=== PATIENT | male | born 1965 | race Caucasian/White ===

== ENCOUNTER 2021-09-28 08:22 | Emergency (ER) | payer BC, OTHER ==
--- NOTE | 2021-09-28 09:33 | ED ---
URI HPI - General Chief Complaint: Upper Respiratory Infection Stated Complaint: DENYS Time Seen by Provider: 09/28/21 08:59 Source: patient, RN notes reviewed Mode of arrival: ambulatory Limitations: no limitations - History of Present Illness Initial Comments: This a 56 show male presents emergency Department with chief complaint of cough congestion. Patient states symptoms started last 24 hours with appears chilled bodyaches not taking any recent Tylenol Motrin is nonproductive cough, mild headache mild sore throat. - Related Data Home Medications Medication Instructions Recorded Confirmed Cetirizine HCl [Zyrtec] 1 tab PO DIRECTED 08/06/15 08/06/15 Previous Rx's Medication Instructions Recorded Famotidine [Pepcid] 20 mg PO DAILY #3 tablet 08/06/15 predniSONE [Deltasone] 20 mg PO DAILY #3 tab 08/06/15 Allergies Allergy/AdvReac Type Severity Reaction Status Date / Time No Known Allergies Allergy Verified 09/28/21 08:42 Review of Systems ROS Statement: Those systems with pertinent positive or pertinent negative responses have been documented in the HPI. ROS Other: All systems not noted in ROS Statement are negative. Past Medical History Past Medical History: Cancer, Diabetes Mellitus Additional Past Medical History / Comment(s): hodgkins lymphoma History of Any Multi-Drug Resistant Organisms: None Reported Additional Past Surgical History / Comment(s): biopsies, med port Past Psychological History: No Psychological Hx Reported Smoking Status: Never smoker Past Alcohol Use History: None Reported Past Drug Use History: None Reported General Exam Limitations: no limitations General appearance: alert, in no apparent distress Head exam: Present: atraumatic, normocephalic, normal inspection Eye exam: Present: normal appearance, PERRL, EOMI. Absent: scleral icterus, conjunctival injection, periorbital swelling ENT exam: Present: normal exam, mucous membranes moist Neck exam: Present: normal inspection, full ROM. Absent: tenderness, meningismus, lymphadenopathy Respiratory exam: Present: normal lung sounds bilaterally. Absent: respiratory distress, wheezes, rales, rhonchi, stridor Cardiovascular Exam: Present: normal rhythm, tachycardia, normal heart sounds. Absent: systolic murmur, diastolic murmur, rubs, gallop, clicks GI/Abdominal exam: Present: soft, normal bowel sounds. Absent: distended, tenderness, guarding, rebound, rigid Course Vital Signs 09/28/21 09/28/21 08:42 09:32 Temperature 99.9 F H Pulse Rate 115 H Respiratory 18 16 Rate Blood Pressure 111/76 O2 Sat by Pulse 95 Oximetry Medical Decision Making - Medical Decision Making Patient is positive for COVID-19 did receive monoclonal antibodies be discharged in stable condition return parameters were discussed. - Lab Data Lab Results 09/28/21 Range/Units 08:48 Coronavirus (PCR) Detected A (Not Detectd) Disposition Clinical Impression: COVID-19 Disposition: HOME SELF-CARE Condition: Stable Instructions (If sedation given, give patient instructions): Coronavirus Disease 2019 (COVID-19) Additional Instructions: Please return to the Emergency Department if symptoms worsen or any other concerns. Is patient prescribed a controlled substance at d/c from ED?: No Referrals: None,Stated [Primary Care Provider] - 1-2 days Time of Disposition: 09:33
[2021-09-28] MEDS ORDERED: CASIRIVIMAB (REGN10933) (EUA) 600 MG, IMDEVIMAB (REGN10987) (EUA) 600 MG in SODIUM CHLO... IVPB ONE (10:00)
[2021-09-28] MEDS ORDERED: SODIUM CHLORIDE 0.9% 50 ML IVPB ONE (10:00)
[2021-09-28] MEDS ORDERED: IBUPROFEN 600 MG TAB PO STA (10:07)
[2021-09-28] MEDS ORDERED: ACETAMINOPHEN TAB 500 MG TAB PO STA (10:07)
[2021-09-28 11:56] VITALS: BP 105/71; PULSE 106; RESP 18; TEMP 99
== END 2021-09-28 11:55 | disposition home or self-care (01) ==
LOC: EC 08:22
DX: U07.1 COVID-19 (principal); E11.9 Type 2 diabetes mellitus without complications
CPT/HCPCS: 87635; 99283; 96365; Q0243

== ENCOUNTER 2021-11-15 19:06 | Inpatient (IN) | payer OTHER ==
--- NOTE | 2021-11-15 19:09 | ED ---
Chest Pain HPI - General Stated Complaint: Stemi Time Seen by Provider: 11/15/21 19:08 - History of Present Illness Initial Comments: Nazario is a 56yo M non-smoker who to the emergency department today via ambulance for evaluation of chest pain. 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 At that time he called EMS and EKG was done which confirmed an inferior wall VT. Patient had COVID in August. He has no other cardiac or pulmonary history. - Related Data Home Medications Medication Instructions Recorded Confirmed No Known Home Medications 09/28/21 09/28/21 Allergies Allergy/AdvReac Type Severity Reaction Status Date / Time No Known Allergies Allergy Verified 11/15/21 19:11 Review of Systems ROS Statement: Those systems with pertinent positive or pertinent negative responses have been documented in the HPI. ROS Other: All systems not noted in ROS Statement are negative. EKG Findings - EKG Comments: EKG Findings:: Pre-Hospital EKG was reviewed at 1845, rate is 92 rhythm is sinus normal axis, normal intervals, there are ST elevations in leads [address] depressions laterally this meets inferior wall STEMI criteria. EKG was obtained upon arrival at 1912, rate is 77 rhythm is sinus leftward axis, normal intervals, UT 164, QRS 104, QTC [address] elevations in 2,3 and aVF STEMI Past Medical History Past Medical History: Cancer, Diabetes Mellitus Additional Past Medical History / Comment(s): hodgkins lymphoma History of Any Multi-Drug Resistant Organisms: None Reported Additional Past Surgical History / Comment(s): biopsies, med port Past Psychological History: No Psychological Hx Reported Smoking Status: Never smoker Past Alcohol Use History: None Reported Past Drug Use History: None Reported General Exam - General Exam Comments Initial Comments: Physical Exam GENERAL: Dugan and diaphoretic Acute distress HENT: Normocephalic, Atraumatic. EYES: PERRL, EOMI PULMONARY: Unlabored respirations. CARDIOVASCULAR: There is a regular rate and rhythm without any murmurs gallops or rubs. ABDOMEN: Soft and nontender with normal bowel sounds. SKIN: Dugan, diaphoretic : Deferred NEUROLOGIC: Patient is alert and oriented x3. Moving all extremities spontaneously MUSCULOSKELETAL: Normal extremities with adequate strength and full range of motion. No lower extremity swelling or edema. No calf tenderness. PSYCHIATRIC: Normal psychiatric evaluation. Course Vital Signs 11/15/21 11/15/21 11/15/21 19:09 19:10 19:15 Pulse Rate 118 H 107 H 98 Respiratory 20 18 18 Rate Blood Pressure 125/106 163/98 159/105 O2 Sat by Pulse 100 99 100 Oximetry 11/15/21 19:18 Pulse Rate 88 Respiratory 18 Rate Blood Pressure 162/105 O2 Sat by Pulse 100 Oximetry Chest Pain MDM - MDM Report was taken prehospital, prehospital EKG was reviewed and meets STEMI criteria. Cardiology was notified and Code STEMI was activated. I spoke with DR. Jones of cardiology who agreed to take this patient directly to cardiac catheterization. The patient was immediately placed in a monitored bed, and IV was placed pre- hospital, oxygen was administered, and the EKG was evaluated and again confirms inferior wall VT. Defibrillator pads were placed on the patient. The patient was given Aspirin. After a chest x-ray was performed which showed no mediastinal widening IV heparin was given based on the patients weight. The patient had normal hemodynamics during the ED course and was taken directly to the cardiac laboratory engineer where Dr Quan as available for intervention Patient care was discussed with Dr Jimenez who accepts the admission Disposition Clinical Impression: STEMI (ST elevation myocardial infarction) Disposition: ADMITTED IP TO THIS HOSP Condition: Serious Is patient prescribed a controlled substance at d/c from ED?: No
[2021-11-15] MEDS ORDERED: HEPARIN SODIUM 1,000 UN/ML (10ML VL) IV ONE ×2 (19:13→19:34)
[2021-11-15] MEDS ORDERED: HEPARIN SODIUM 1,000 UN/ML (10ML VL) IV PRN (19:13)
[2021-11-15] MEDS ORDERED: HEPARIN SOD,PORK IN 0.45% NACL 25,000 UNIT in 0.45% NACL 1 250ML.BAG IV SCH (19:15)
[2021-11-15] MEDS ORDERED: LIDOCAINE 1% INJ 10MG/ML (20 ML MDV) ONE (19:21)
[2021-11-15] MEDS ORDERED: HEPARIN SODIUM 1,000 UN/ML (10ML VL) ONE (19:21)
[2021-11-15] MEDS ORDERED: VERAPAMIL 2.5 MG/ML 2 ML AMP ONE (19:21)
[2021-11-15] MEDS ORDERED: ATORVASTATIN 80 MG TAB PO STA (19:21)
[2021-11-15] MEDS ORDERED: ATORVASTATIN 80 MG TAB PO ONE (19:27)
--- NOTE | 2021-11-15 19:28 | XR ---
EXAMINATION TYPE: XR chest 1V portable DATE OF EXAM: 11/15/2021 COMPARISON: NONE HISTORY: Chest pain. TECHNIQUE: Single frontal view of the chest is obtained. FINDINGS: The heart is enlarged. The pulmonary vasculature is within normal limits. Low lung volumes. There is opacification at the left base. IMPRESSION: Cardiomegaly with the left effusion with adjacent atelectasis/airspace disease.
[2021-11-15] MEDS ORDERED: MIDAZOLAM 2 MG/2 ML VIAL IVP ONE (19:30)
[2021-11-15] MEDS ORDERED: LIDOCAINE 1% INJ 10MG/ML (20 ML MDV) SQ ONE (19:31)
[2021-11-15 19:32] LABS: ALT 15 U/L (4-49); AST 19 U/L (17-59); African American GFR (CKD) >90 (>60 ml/min/1.73 sqM); Albumin 4.2 g/dL (3.5-5.0); Alkaline Phosphatase 86 U/L (38-126); Anion Gap 10 mmol/L; Blood Urea Nitrogen 15 mg/dL (9-20); Calcium 9.3 mg/dL (8.4-10.2); Carbon Dioxide 21 mmol/L (22-30); Chloride 105 mmol/L (98-107); Glucose 248 mg/dL (74-99); Non-African American GFR(CKD) >90 (>60 ml/min/1.73 sqM); Potassium 4.1 mmol/L (3.5-5.1); Sodium 136 mmol/L (137-145); Total Bilirubin 0.9 mg/dL (0.2-1.3); Total Protein 7.4 g/dL (6.3-8.2)
[2021-11-15] MEDS ORDERED: IV FLUID CONTINUATION 1,000 ML IV ONE (19:33)
[2021-11-15] MEDS: VERAPAMIL SYRINGE (5 MG/10 ML) INTRAARTER ONE ×2 (19:33→20:01)
--- NOTE | 2021-11-15 19:38 | P.CRDCN ---
History of Present Illness History of present illness: This is Dr. Jones dictating a consult on this patient The patient was interviewed and examined IMPRESSION / ASSESSMENT: Acute ST elevation ME inferior and posterior and lateral, likely left circumflex territory Type 2 diabetes for the last 3 years, not on medications Hypertension blood pressure ranging around 140/80, not on an MICHELLE inhibitor is on angiotensin receptor blockers Nonsmoker/never smoker Not on any medications at home Past history of Hodgkin's lymphoma PLAN: Patient received aspirin heparin and statins Urgent transferred to the Mathematics Department Chair for coronary angiography and intervention HPI This is a 56-year-old male patient who presented with midsternal chest discomfort that 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 EXAMINATION: 1 2406 163/9850 905 Pulse rate about 100 normal respirations Breath sounds are clear no rhonchi no crackles Normal heart sounds no murmurs or gallops no rub No lower extremity edema No JVD bruits REVIEW OF LABS, ECG & MEDICAL DATA Twelve-lead EKG shows sinus rhythm normal LA ST elevation in the inferior leads, ST elevation in V1 and V2 [ST depression mirror-image], ST elevation in V6 and ST depressions one in aVL Past Medical History Past Medical History: Cancer, Diabetes Mellitus Additional Past Medical History / Comment(s): hodgkins lymphoma History of Any Multi-Drug Resistant Organisms: None Reported Additional Past Surgical History / Comment(s): biopsies, med port Past Psychological History: No Psychological Hx Reported Smoking Status: Never smoker Past Alcohol Use History: None Reported Past Drug Use History: None Reported Medications and Allergies Home Medications Medication Instructions Recorded Confirmed Type No Known Home Medications 09/28/21 09/28/21 History Allergies Allergy/AdvReac Type Severity Reaction Status Date / Time No Known Allergies Allergy Verified 11/15/21 19:11 Physical Exam Vitals: Vital Signs Pulse Resp BP Pulse Ox 11/15/21 19:09 118 H 20 125/106 100 Intake and Output 11/15/21 11/15/21 11/15/21 06:59 14:59 22:59 Other: Weight 113.398 kg Results Current Medications Generic Name Dose Route Start Last Admin Trade Name Freq PRN Reason Stop Dose Admin Heparin Sodium (Porcine) 0 unit 11/15/21 19:13 Heparin Sodium 1,000 Un/Ml (10ml Vl) IV PER PROTOCOL PRN Low PTT Protocol Heparin Sodium/Sodium Chloride 250 mls @ 9.979 mls/hr 11/15/21 19:15 25,000 unit/ Sodium Chloride IV .Q24H EDNA Protocol 8.8 UNITS/KG/HR Nitroglycerin 0.4 mg 11/15/21 19:08 Nitroglycerin Sl Tabs 0.4 Mg Tab SUBLINGUAL Q5M PRN Chest Pain Intake and Output 11/15/21 11/15/21 11/15/21 06:59 14:59 22:59 Other: Weight 113.398 kg Patient Weight 11/16/21 06:59 Weight 113.398 kg
[2021-11-15] MEDS ORDERED: PRASUGREL 10 MG TAB ONE (19:39)
[2021-11-15] MEDS ORDERED: MORPHINE SULFATE 4 MG/ML SYRINGE ONE (19:41)
[2021-11-15] MEDS ORDERED: niCARdipine 25 MG/10 ML VIAL ONE (19:42)
[2021-11-15] MEDS ORDERED: MORPHINE SULFATE 4 MG/ML SYRINGE IVP ONE (19:45)
[2021-11-15 19:46] LABS: Basophils % (A) 1 %; Eosinophils # (A) 0.1 k/uL (0-0.7); Eosinophils % (A) 1 %; HCT 47.7 % (39.0-53.0); HGB 16.3 gm/dL (13.0-17.5); Lymphocytes # (A) 2.5 k/uL (1.0-4.8); Lymphocytes % (A) 34 %; MCH 30.5 pg (25.0-35.0); MCHC 34.2 g/dL (31.0-37.0); Mean Platelet Volume 9.2; Monocytes # (A) 0.4 k/uL (0-1.0); Monocytes % (A) 5 %; Neutrophils # (A) 4.3 k/uL (1.3-7.7); Neutrophils % (A) 57 %; Platelet Count 217 k/uL (150-450); RBC 5.35 m/uL (4.30-5.90); RDW 12.9 % (11.5-15.5); WBC 7.5 k/uL (3.8-10.6)
[2021-11-15] MEDS ORDERED: PRASUGREL 10 MG TAB PO ONE (19:46)
[2021-11-15] MEDS ORDERED: niCARdipine Syringe (1,000 mcg/10 mL) INTRACORON ONE (19:50)
[2021-11-15 19:56] LABS: Partial Thromboplastin Time 21.5 sec (22.0-30.0); Prothrombin Time 10.8 sec (9.0-12.0)
[2021-11-15] MEDS ORDERED: IOPAMIDOL-370 125ML BTL INJ ONE (20:04)
[2021-11-15] MEDS ORDERED: NALOXONE 0.4 MG/ML 1 ML VIAL IV PRN (20:06)
[2021-11-15] MEDS ORDERED: NITROGLYCERIN SL TABS 0.4 MG TAB SUBLINGUAL PRN (20:22)
[2021-11-15] MEDS ORDERED: RX INFO: IV CONTRAST WAS GIVEN 1 EACH MISC MISCELLANE PRN (20:22)
[2021-11-15] MEDS ORDERED: ZOLPIDEM 5 MG TAB PO PRN (20:22)
[2021-11-15] MEDS ORDERED: MAG HYDROX/AL HYDROX/SIMETH 30 ML CUP PO PRN (20:22)
[2021-11-15] MEDS ORDERED: ATROPINE SULFATE 0.1 MG/ML 10ML SYRINGE IV PRN (20:22)
[2021-11-15] MEDS ORDERED: SODIUM CHLORIDE 0.9% 1,000 ML in EMPTY BAG 1 BAG IV SCH (20:30)
[2021-11-15 20:40] LABS: Glucose,Whole Blood 226 mg/dL (75-99)
--- NOTE | 2021-11-15 21:28 | CC ---
CARDIAC CATHETERIZATION REPORT DATE OF SERVICE: 11/15/2021 PERFORMING PHYSICIAN: Ed Quan M.D. PROCEDURES PERFORMED: 1. Selective left and right coronary angiogram. 2. Left heart catheterization. 3. Successful stenting of the mid right coronary artery using a 3.5 x 18 mm Xience drug-eluting stent with an excellent angiographic result. The stent was post- dilated using 4 mm balloon. 4. Successful stenting of the large PLV branch of the right coronary artery using a 2.0 x 12 mm Jomar drug-eluting stent with an excellent angiographic result. 5. Aspiration thrombectomy from the right coronary artery. 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 EKG showed sinus rhythm with ST-segment elevation in the inferior and inferolateral leads. APPROACH: Right radial artery. COMPLICATIONS: None. LEVEL OF SEDATION: Moderate, with sedation length of 32 minutes. Door to balloon was 37 minutes. PROCEDURE DESCRIPTION: After obtaining informed consent, the patient was brought to the cardiac assistant laboratory director. The right radial artery was cannulated using micropuncture technique. The micropuncture wire passed easily. Then I placed a 6-[place] sheath at the right radial artery. I gave the patient 2 mg of verapamil IA and a total of 6000 units of heparin IV. Please note that the patient was given 4000 units of heparin IV in the emergency department. Selective left and right coronary angiogram was performed with JL3.5 diagnostic catheter and JR4 guiding catheter. Left heart catheterization was performed using the JR4 guide, which crossed the aortic valve. Then I did pullback across the valve. After that I did intervene on the RCA. Please see separate paragraph for that. SELECTIVE CORONARY ANGIOGRAM: 1. The left main is a large-caliber vessel. It is angiographically normal. It bifurcates into a left circumflex, which is a nondominant circumflex, and LAD. 2. The LCX. The proximal left circumflex appeared to have mild disease only. It gives rise to a large OM branch which has two tandem lesions that appeared to be in the range of 80% to 90%. The circumflex continues after that as a moderate-caliber vessel in the AV groove. 3. The LAD. The proximal LAD appeared to have mild disease only. The mid LAD has an intermediate lesion that appeared to be in the range of 30% to 40%. The LAD in the mid to distal portion after the second diagonal branch has two tandem lesions that appeared to be in the range of 80% as well. The LAD gives rise to the first and second diagonal branches. Both are moderate-caliber vessels with intermediate disease only. 4. The RCA is a large-caliber vessel. It is a dominant vessel. The proximal RCA has mild disease only. The mid RCA after the bifurcation of the large acute marginal branch has a critical lesion which appeared to be a thrombotic lesion and seemed to be in the range of 99%. The RCA distally bifurcates into PDA and PLV branches. The PDA branch of the RCA has mild disease only. The PLV branch is a large-caliber vessel with a critical lesion in the mid portion. 5. HEMODYNAMICS: The LVEDP was 20 mmHg without significant gradient across the aortic valve. PERCUTANEOUS CORONARY INTERVENTION OF THE RIGHT CORONARY ARTERY: Anticoagulation was achieved and initiated using heparin with continuous ACT monitoring throughout the case. Subsequently I did engage the right using JR4 guiding catheter. I did wire the right using a Whisper wire. I did aspiration thrombectomy from the lesion in the right coronary artery using the [place] catheter. Subsequently I did balloon angioplasty using a 3.0 x 12 mm balloon before I deployed a 3.5 x 18 mm Xience drug-eluting stent where the stent was positioned under fluoroscopic guidance and deployed under 20 atmospheres for 20 seconds. I post-dilated the stent using a 4 mm balloon. The final angiogram showed excellent angiographic results. For the lesion in the PLV branch and because it is a medium- to large-caliber vessel and the occlusion was critical, I decided to stent that lesion. I deployed a 2.0 x 12 mm Jomar drug-eluting stent where the stent was positioned under fluoroscopic guidance and deployed under its nominal pressure. The following angiogram showed excellent angiographic results and the procedure was completed without any complication. CONCLUSION: 1. Acute ST-elevation myocardial infarction in this 56-year-old gentleman with diabetes, hypertension, dyslipidemia and who is overweight. 2. Critical disease involving the mid right coronary artery with a large thrombus burden. I performed successful stenting of the right coronary artery with adjunctive use of aspiration thrombectomy with an excellent angiographic result by the end. 3. Severe disease involving the PLV branch of the right coronary artery. I did perform also successful stenting of the PLV branch of the right coronary artery with an excellent angiographic result. 4. Critical disease involving the first obtuse marginal branch of the left circumflex which is a large-caliber vessel. 5. Critical disease involving the mid left anterior descending artery as well. 6. Elevated left-sided filling pressure with left ventricular end-diastolic pressure of 20 mm Hg. POST-PROCEDURE MANAGEMENT: 1. Aggressive cholesterol control. 2. Risk factor modifications. 3. Dual anti-platelet therapy. 4. PCI of the left circumflex as well as the LAD to be performed as a staged procedure either as an inpatient or as an outpatient, depending on the patient's clinical performance. 5. Follow up with the patient. MMODL / IJN: [id number] /
[2021-11-16] MEDS: NITROGLYCERIN SL TABS 0.4 MG TAB SUBLINGUAL PRN ×2 (05:33→05:54)
[2021-11-16 08:54] LABS: African American GFR (CKD) >90 (>60 ml/min/1.73 sqM); Non-African American GFR(CKD) >90 (>60 ml/min/1.73 sqM)
[2021-11-16] MEDS ORDERED: METOPROLOL SUCCINATE (ER) 25 MG TAB.ER.24H PO SCH (09:00)
[2021-11-16] MEDS: PRASUGREL 10 MG TAB PO SCH (09:21)
[2021-11-16] MEDS: ASPIRIN 81 MG PO SCH (09:21)
[2021-11-16] MEDS ORDERED: lisinopriL 5 MG TAB PO STA (10:14)
--- NOTE | 2021-11-16 10:22 | P.PN ---
Subjective Progress Note Date: 11/16/21 Patient is a 56-year-old male with no known cardiac history admitted with acute ST elevated myocardial infarction of the inferior, posterior, and lateral. Patient does have a history of type 2 diabetes is not currently on any medications, Hodgkin's lymphoma, and he is a nonsmoker. 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 Patient underwent immediate heart catheterization and was found to have disease of the LAD, RCA and left circumflex. He received PCI to the mid RCA and PLV branch of the RCA. He needs to undergo PCI of the LAD and left circumflex. Patient is examined today resting in bed comfortably. States he is doing much better than he was yesterday. He denies chest pain, palpitations, dyspnea, dizziness, syncope, or edema at this time. He states earlier this morning he did have very mild chest pain as compared to yesterday but it has since subsided. Blood pressure 141/86, heart rate 82, respirations 20, 94% oxygen on room air. Afebrile. Current medications include aspirin 81 mg daily, Lipitor 80 mg daily, lisinopril 2.5 daily, Toprol-XL 12.5 daily, and Effient 5mg daily. DIAGNOSTICS: Telemetry shows sinus rhythm with an inverted T wave Echocardiogram pending Chest x-ray shows cardiomegaly with left effusion with adjacent atelectasis/airway space disease Labs reviewedhemoglobin 16.3, sodium 136, potassium 4.1, B1 15, creatinine 0.54, AST 19, ALP 15, troponin 0.066 Objective - Vital Signs Vital signs: Vital Signs Temp 98.4 F 11/16/21 09:00 Pulse 82 11/16/21 09:00 Resp 20 11/16/21 09:00 BP 141/86 11/16/21 09:00 Pulse Ox 94 L 11/16/21 09:00 Intake & Output 11/15/21 11/16/21 11/16/21 18:59 06:59 18:59 Intake Total 845 20 Output Total 600 Balance 245 20 Weight 113 kg Intake: IV 50 Intake, IV Titration 695 20 Amount Sodium Chloride 0.9% 1, 695 20 000 ml In Empty Bag 1 bag @ 75 mls/hr IV .[id number] [facility] Rx#:[id number] Oral 100 Output: Urine 600 Other: Voiding Method Urinal - Exam PHYSICAL EXAM: VITAL SIGNS: Reviewed. GENERAL: Well-developed in no acute distress. HEENT: Head is normocephalic. Pupils are equal, round. Sclerae anicteric. Mucous membranes of the mouth are moist. NECK: Supple. No JVD or thyromegaly RESPIRATORY: Respirations even and unlabored. Lungs diminished to auscultation bilaterally. CARDIO: Regular rate and rhythm. S1 and S2 heard. No murmur or gallops. EXTREMITIES: Normal range of motion. No clubbing or cyanosis. Peripheral pulses intact. Negative for bilateral lower extremity edema NEURO: Orientated to person, time, mood is appropriate - Labs CBC & Chem 7: 11/15/21 19:12 11/16/21 08:08 Labs: Abnormal Lab Results - Last 24 Hours (Table) 11/15/21 11/15/21 11/15/21 Range/Units 19:12 19:12 19:12 APTT 21.5 L (22.0-30.0) sec Sodium 136 L (137-145) mmol/L Carbon Dioxide 21 L (22-30) mmol/L Creatinine 0.64 L (0.66-1.25) mg/dL Glucose 248 H (74-99) mg/dL POC Glucose (mg/dL) (75-99) mg/dL Troponin I 0.066 H* (0.000-0.034) ng/mL 11/15/21 11/16/21 Range/Units 20:39 08:08 APTT (22.0-30.0) sec Sodium (137-145) mmol/L Carbon Dioxide (22-30) mmol/L Creatinine 0.54 L (0.66-1.25) mg/dL Glucose (74-99) mg/dL POC Glucose (mg/dL) 226 H (75-99) mg/dL Troponin I (0.000-0.034) ng/mL Assessment and Plan Assessment: Acute infarct inferior wall myocardial infarction, status post angioplasty of the mid RCA and PLV branch of the RCA Acute coronary artery syndrome, possible PCI of the LAD and left circumflex Hypertension Hyperlipidemia Plan: Patient to be nothing by mouth at midnight, for possible heart catheterization tomorrow for angioplasty of the LAD and left circumflex Repeat troponin 1 Increase lisinopril to 10 mg daily Patient maybe downgraded to 3 south Further recommendations based on clinical course. The above impression and plan of care have been discussed and directed by the signing physician. Franny La, nurse practitioner, acting as scribe for signing physician.
--- NOTE | 2021-11-16 10:59 | ECHOF ---
Referral Reason:Echo MEASUREMENTS -------- HEIGHT: 182.9 cm WEIGHT: 112.9 kg BP: 121/75 RVIDd: 3.6 cm (< 3.3) IVSd: 1.6 cm (0.6 - 1.1) LVIDd: 4.7 cm (3.9 - 5.3) LVPWd: 1.6 cm (0.6 - 1.1) IVSs: 1.9 cm LVIDs: 3.8 cm LVPWs: 1.7 cm LA Diam: 4.1 cm (2.7 - 3.8) LAESV Index (A-L): 33.42 ml/m Ao Diam: 3.9 cm (2.0 - 3.7) AV Cusp: 2.7 cm (1.5 - 2.6) MV EXCURSION: 17.354 mm (> 18.000) MV EF SLOPE: 84 mm/s (70 - 150) EPSS: 1.0 cm MV E Alan: 0.66 m/s MV DecT: 234 ms MV A Alan: 0.73 m/s MV E/A Ratio: 0.91 FINDINGS -------- Sinus rhythm. This was a technically adequate study. The left ventricular size is normal. There is moderate concentric left ventricular hypertrophy. O verall left ventricular systolic function is low-normal with, an EF between 50 - 55 %. Basal inferi or LV wall motion is hypokinetic. The right ventricle is mildly enlarged. LA is midly dilated 29-33ml/m2. The right atrium is normal in size. Interatrial and interventricular septum intact. Trace to mild aortic regurgitation. The mitral valve is normal. The tricuspid valve appears structurally normal. Unable to estimate RVSP due to inadequate TR jet s pectral doppler profile. The pulmonic valve was not well visualized. The aortic root is dilated measuring 3.9cm. Normal inferior vena cava with normal inspiratory collapse consistent with estimated right atrial pre ssure of 5 mmHg. There is no pericardial effusion. CONCLUSIONS -------- 1. The left ventricular size is normal. 2. There is moderate concentric left ventricular hypertrophy. 3. Overall left ventricular systolic function is low-normal with, an EF between 50 - 55 %. 4. Basal inferior LV wall motion is hypokinetic. 5. The right ventricle is mildly enlarged. 6. LA is midly dilated 29-33ml/m2. 7. Trace to mild aortic regurgitation. 8. The aortic root is dilated measuring 3.9cm. 9. There is no pericardial effusion. ENVIRONMENTAL LAW PROFESSOR: Nisha Vizcarra RDCS
[2021-11-16 11:24] LABS: Glucose,Whole Blood 237 mg/dL (75-99)
[2021-11-16 14:28] VITALS: BMI 33.7
[2021-11-16] MEDS ORDERED: ALPRAZolam 0.5 MG TAB PO PRN (15:16)
[2021-11-16] MEDS ORDERED: ALPRAZolam 0.25 MG TAB PO PRN (15:16)
[2021-11-16 16:47] LABS: Glucose,Whole Blood 213 mg/dL (75-99)
[2021-11-16] MEDS: carvediloL 3.125 MG TAB PO SCH (18:09)
[2021-11-16] MEDS: INSULIN ASPART (NovoLOG) 100 UNIT/ML VIAL SQ SCH ×2 (18:10→20:50)
[2021-11-16 20:48] LABS: Glucose,Whole Blood 229 mg/dL (75-99)
[2021-11-16] MEDS: ATORVASTATIN 80 MG TAB PO SCH (20:50)
[2021-11-17] MEDS: ASPIRIN 81 MG PO SCH (05:17)
[2021-11-17] MEDS: lisinopriL 10 MG TAB PO SCH (05:17)
[2021-11-17] MEDS: PRASUGREL 10 MG TAB PO SCH (05:17)
[2021-11-17] MEDS: carvediloL 3.125 MG TAB PO SCH ×2 (05:18→17:04)
[2021-11-17 06:22] LABS: Glucose,Whole Blood 209 mg/dL (75-99)
[2021-11-17] MEDS ORDERED: HEPARIN SODIUM,PORCINE 2,500 UNIT in SODIUM CHLORIDE 0.9% 250 ML IRRIGATION PRN (07:00)
[2021-11-17] MEDS ORDERED: HEPARIN SODIUM,PORCINE 10,000 UNIT in SODIUM CHLORIDE 0.9% 1,000 ML IRRIGATION PRN (07:00)
[2021-11-17] MEDS ORDERED: HEPARIN SODIUM 1,000 UN/ML (10ML VL) ONE (07:12)
[2021-11-17] MEDS ORDERED: LIDOCAINE 1% INJ 10MG/ML (20 ML MDV) ONE (07:12)
[2021-11-17] MEDS ORDERED: VERAPAMIL 2.5 MG/ML 2 ML AMP ONE (07:12)
[2021-11-17] MEDS ORDERED: IV FLUID CONTINUATION 750 ML IV ONE (07:30)
[2021-11-17] MEDS ORDERED: MIDAZOLAM 2 MG/2 ML VIAL IV ONE ×2 (07:45→08:03)
[2021-11-17] MEDS ORDERED: LIDOCAINE 1% INJ 10MG/ML (20 ML MDV) SQ ONE (07:48)
[2021-11-17] MEDS ORDERED: VERAPAMIL SYRINGE (5 MG/10 ML) INTRAARTER ONE (07:50)
[2021-11-17] MEDS ORDERED: fentaNYL (PF) 50 MCG/ML 2 ML AMP ONE (08:05)
[2021-11-17 08:07] LABS: African American GFR (CKD) >90 (>60 ml/min/1.73 sqM); Anion Gap 6 mmol/L; Blood Urea Nitrogen 15 mg/dL (9-20); Calcium 8.9 mg/dL (8.4-10.2); Carbon Dioxide 21 mmol/L (22-30); Chloride 109 mmol/L (98-107); Glucose 222 mg/dL (74-99); Non-African American GFR(CKD) >90 (>60 ml/min/1.73 sqM); Sodium 136 mmol/L (137-145)
[2021-11-17] MEDS ORDERED: fentaNYL (PF) 50 MCG/ML 2 ML AMP IV ONE (08:07)
[2021-11-17 08:10] LABS: Potassium 4.8 mmol/L (3.5-5.1)
[2021-11-17 08:15] LABS: Basophils # (A) 0.1 k/uL (0-0.2); Basophils % (A) 1 %; Eosinophils # (A) 0.1 k/uL (0-0.7); Eosinophils % (A) 2 %; HCT 50.1 % (39.0-53.0); HGB 16.4 gm/dL (13.0-17.5); Hypochromasia Marked; Lymphocytes # (A) 1.4 k/uL (1.0-4.8); Lymphocytes % (A) 23 %; MCHC 32.8 g/dL (31.0-37.0); Mean Platelet Volume 9.5; Monocytes # (A) 0.7 k/uL (0-1.0); Monocytes % (A) 11 %; Neutrophils # (A) 3.7 k/uL (1.3-7.7); Neutrophils % (A) 61 %; Platelet Count 184 k/uL (150-450); RBC 4.98 m/uL (4.30-5.90); RDW 12.9 % (11.5-15.5); WBC 6.1 k/uL (3.8-10.6)
[2021-11-17 08:16] LABS: MCV 100.5 fL (80.0-100.0)
[2021-11-17] MEDS ORDERED: IOPAMIDOL-370 100ML BTL INJ ONE ×2 (08:19→08:29)
[2021-11-17] MEDS ORDERED: NITROGLYCERIN 1000MCG/10ML SYRINGE INTRACORON ONE (08:23)
[2021-11-17] MEDS ORDERED: NITROGLYCERIN SL TABS 0.4 MG TAB SUBLINGUAL PRN (08:32)
[2021-11-17] MEDS ORDERED: ZOLPIDEM 5 MG TAB PO PRN (08:32)
[2021-11-17] MEDS ORDERED: MAG HYDROX/AL HYDROX/SIMETH 30 ML CUP PO PRN (08:32)
[2021-11-17] MEDS ORDERED: ATROPINE SULFATE 0.1 MG/ML 10ML SYRINGE IV PRN (08:32)
[2021-11-17] MEDS ORDERED: RX INFO: IV CONTRAST WAS GIVEN 1 EACH MISC MISCELLANE PRN (08:32)
--- NOTE | 2021-11-17 08:38 | P.PCN ---
Date of Procedure: 11/17/21 Operative Findings: Percutaneous coronary intervention Performing physician Ed Quan M.D. Procedure performed #1 successful stenting of the distal left circumflex coronary artery using 3.25 x 28 mm Xience drug-eluting stent with an excellent angiographic results #2 successful stenting of the distal left anterior descending artery using 2.75 x 38 mm Xience drug-eluting stent with an excellent angiographic result Indication This is a 56-year-old gentleman who was admitted to the hospital a few days ago with acute ST patient myocardial infarction inferiorly. He underwent heart catheterization and was found to have occluded RCA which was a stent and also he was found to have severe disease involving the LCx and LAD and he was brought today to undergo stenting of both. Approach Right radial artery Complications None Level of sedation Moderate sedation length of 40 minutes Procedure discussion After obtaining an informed consent the patient was brought to the cardiac catheter. The right radial artery was cannulated using micropuncture technique, the micropuncture wire passed easily then I placed a 6-Slovenian sheath in the right radial artery. I gave the patient 2 mg of verapamil IV and 10,000 use of heparin IV. Subsequently I did engage the left main using JL 3.5 guiding catheter. I did wire the left circumflex using a run-through wire. Subsequently I predilated the circumflex using 2.0 mm balloon before I deployed 3.25 x 28 mm stent where the stent was positioned under fluoroscopy guidance and deployed under its nominal pressure. I postdilated the stent using 3.5 mm balloon. The following angiogram showed an excellent angiographic results. For the lesion in the LAD I did where the LAD using the same run-through wire. I predilated using 2.5 mm balloon before I deployed 2.75 x 38 mm stent where the stent again was positioned under fluoroscopy as and deployed under its nominal pressure. The following angiogram showed excellent angiographic results. The procedure was completed without any complications Postprocedure management Dual antiplatelet therapy Aggressive cholesterol control Risk factors modification Follow-up with the patient
[2021-11-17] MEDS ORDERED: SODIUM CHLORIDE 0.9% 1,000 ML in EMPTY BAG 1 BAG IV SCH (08:45)
[2021-11-17] MEDS: INSULIN ASPART (NovoLOG) 100 UNIT/ML VIAL SQ SCH ×4 (09:17→20:06)
[2021-11-17 09:18] LABS: Glucose,Whole Blood 225 mg/dL (75-99)
--- NOTE | 2021-11-17 11:18 | P.HPIM ---
History of Present Illness This is a very pleasant 56-year-old male came in with complaints of nausea vomiting burning sensation which is much worse on last Tuesday and patient came to ER patient has 6 heartburn sensation going on for last few days. Patient is found to have inferior microinfarction patient underwent cardiac catheterization and found to have disease in LAD, RCA and left circumflex. Patient had a PCI to mid RCA and the PLV branch of RCA. Patient underwent staged intervention today as well. Patient had PCI to LAD and left circumflex. Patient denied any fever chills patient does have known history of diabetes mellitus patient is trying to control this with the diet to until recently and lately his diet has not been so great. Patient had a post-NM echo which did not show any heart failure but did show inferior wall akinesis/hypokinesis. Patient denied any symptoms at this time. REVIEW OF SYSTEMS: CONSTITUTIONAL: No fever, no malaise, no fatigue. HEENT: No recent visual problems or hearing problems. Denied any sore throat. CARDIOVASCULAR: No chest pain, orthopnea, PND, no palpitations, no syncope. PULMONARY: No shortness of breath, no cough, no hemoptysis. GASTROINTESTINAL: No diarrhea, no nausea, no vomiting, no abdominal pain. NEUROLOGICAL: No headaches, no weakness, no numbness. HEMATOLOGICAL: Denies any bleeding or petechiae. GENITOURINARY: Denies any burning micturition, frequency, or urgency. MUSCULOSKELETAL/RHEUMATOLOGICAL: Denies any joint pain, swelling, or any muscle pain. ENDOCRINE: Denies any polyuria or polydipsia. The rest of the 14-point review of systems is negative. PHYSICAL EXAMINATION: GENERAL: The patient is alert and oriented x3, not in any acute distress. Well developed, well nourished. HEENT: Pupils are round and equally reacting to light. EOMI. No scleral icterus. No conjunctival pallor. Normocephalic, atraumatic. No pharyngeal erythema. No thyromegaly. CARDIOVASCULAR: S1 and S2 present. No murmurs, rubs, or gallops. PULMONARY: Chest is clear to auscultation, no wheezing or crackles. ABDOMEN: Soft, nontender, nondistended, normoactive bowel sounds. No palpable organomegaly. MUSCULOSKELETAL: No joint swelling or deformity. EXTREMITIES: No cyanosis, clubbing, or pedal edema. NEUROLOGICAL: Gross neurological examination did not reveal any focal deficits. SKIN: No rashes. Assessment and plan -Acute ST elevation myocardial infarction: Patient had inferior wall microinfarction, does have coronary artery disease in other vessels as well. Patient is status post cardiac catheterization and staged intervention with the intervention to above-mentioned blood vessels. Patient is on dual antibiotic therapy MICHELLE inhibitor, beta vanessa, statin. Patient says troponin is around 12. -Type 2 diabetes mellitus: Continue with sliding scale for now patient will be discharged on metformin at a low dose patient will need probably to medications. Diabetic education, CBGs twice a day. - hypertension -Hyperlipidemia. DVT prophylaxis: Ambulation Past Medical History Past Medical History: Cancer, Diabetes Mellitus Additional Past Medical History / Comment(s): hodgkins lymphoma History of Any Multi-Drug Resistant Organisms: None Reported Additional Past Surgical History / Comment(s): biopsies, med port Past Psychological History: No Psychological Hx Reported Smoking Status: Never smoker Past Alcohol Use History: None Reported Past Drug Use History: None Reported Medications and Allergies Home Medications Medication Instructions Recorded Confirmed Type Prasugrel [Effient] 10 mg PO DAILY 30 Days #30 tab 11/17/21 Rx Allergies Allergy/AdvReac Type Severity Reaction Status Date / Time No Known Allergies Allergy Verified 11/15/21 21:09 Physical Exam Vitals: Vital Signs Temp Pulse Pulse Resp BP BP BP 11/17/21 08:45 97.8 F 82 16 129/82 11/17/21 04:00 98.1 F 91 16 125/78 11/17/21 02:00 86 16 11/17/21 00:00 98.1 F 86 16 105/67 11/16/21 20:00 98.3 F 86 18 127/78 11/16/21 16:09 98.1 F 86 19 121/77 11/16/21 13:00 82 14 137/92 11/16/21 12:00 105 H 12 Pulse Ox 11/17/21 08:45 97 11/17/21 04:00 95 11/17/21 02:00 11/17/21 00:00 94 L 11/16/21 20:00 97 11/16/21 16:09 97 11/16/21 13:00 96 11/16/21 12:00 Intake and Output 01/17/22 01/18/22 01/18/22 22:59 06:59 14:59 Intake Total 236 300 Balance 236 300 Intake: IV 300 Oral 236 Other: Voiding Method Urinal Urinal Urinal Results CBC & Chem 7: 11/17/21 07:18 11/17/21 07:18 Labs: Abnormal Lab Results - Last 24 Hours (Table) 11/15/21 11/16/21 11/16/21 Range/Units 19:12 11:23 16:42 MCV (80.0-100.0) fL Sodium (137-145) mmol/L Chloride (98-107) mmol/L Carbon Dioxide (22-30) mmol/L Creatinine (0.66-1.25) mg/dL Glucose (74-99) mg/dL POC Glucose (mg/dL) 237 H 213 H (75-99) mg/dL Hemoglobin A1c 9.4 H (0.0-6.0) % 11/16/21 11/17/21 11/17/21 Range/Units 20:44 06:20 07:18 MCV 100.5 H D (80.0-100.0) fL Sodium (137-145) mmol/L Chloride (98-107) mmol/L Carbon Dioxide (22-30) mmol/L Creatinine (0.66-1.25) mg/dL Glucose (74-99) mg/dL POC Glucose (mg/dL) 229 H 209 H (75-99) mg/dL Hemoglobin A1c (0.0-6.0) % 11/17/21 11/17/21 Range/Units 07:18 09:16 MCV (80.0-100.0) fL Sodium 136 L (137-145) mmol/L Chloride 109 H (98-107) mmol/L Carbon Dioxide 21 L (22-30) mmol/L Creatinine 0.62 L (0.66-1.25) mg/dL Glucose 222 H (74-99) mg/dL POC Glucose (mg/dL) 225 H (75-99) mg/dL Hemoglobin A1c (0.0-6.0) %
[2021-11-17 11:53] LABS: Glucose,Whole Blood 176 mg/dL (75-99)
[2021-11-17 16:47] LABS: Glucose,Whole Blood 176 mg/dL (75-99)
[2021-11-17 19:57] LABS: Glucose,Whole Blood 182 mg/dL (75-99)
[2021-11-17] MEDS: ATORVASTATIN 80 MG TAB PO SCH (20:06)
[2021-11-18 06:10] LABS: Glucose,Whole Blood 219 mg/dL (75-99)
[2021-11-18] MEDS: INSULIN ASPART (NovoLOG) 100 UNIT/ML VIAL SQ SCH ×2 (06:19→11:38)
[2021-11-18] MEDS: carvediloL 3.125 MG TAB PO SCH (06:19)
[2021-11-18] MEDS: lisinopriL 10 MG TAB PO SCH (08:58)
[2021-11-18] MEDS: PRASUGREL 10 MG TAB PO SCH (08:58)
[2021-11-18] MEDS: ASPIRIN 81 MG PO SCH (08:58)
[2021-11-18 09:02] VITALS: RESP 16; TEMP 99.1
[2021-11-18 09:03] LABS: African American GFR (CKD) >90 (>60 ml/min/1.73 sqM); Non-African American GFR(CKD) >90 (>60 ml/min/1.73 sqM)
[2021-11-18 11:32] LABS: Glucose,Whole Blood 224 mg/dL (75-99)
[2021-11-18 11:41] VITALS: BP 132/92; PULSE 84
--- NOTE | 2021-11-18 13:00 | P.PN ---
Subjective Patient is a 56-year-old male with no known cardiac history admitted with acute ST elevated myocardial infarction of the inferior, posterior, and lateral. Patient does have a history of type 2 diabetes is not currently on any medications, Hodgkin's lymphoma, and he is a nonsmoker. He does not follow with a cable lacer. Patient underwent immediate heart catheterization and was found to have disease of the LAD, RCA and left circumflex. He received PCI to the mid RCA and PLV branch of the RCA on 11/15/[address] Quan Yesterday, 11/17/21 He underwent PCI to the distal circumflex and distal LAD with Dr. Quan. Patient is examined today resting in bed comfortably. He is feeling well. No complaints. He denies chest pain, palpitations, dyspnea, dizziness, syncope, or edema at this time. Blood pressure 132/92, heart rate 84, afebrile, satura tions 95% on room air. Afebrile. Current medications include aspirin 81 mg daily, Lipitor 80 mg daily, lisinopril 2.5 daily, Toprol-XL 12.5 daily, and Effient 10mg daily. Echocardiogram revealed EF of 5055 percent, basal inferior LV wall hypokinetic Labs, serum creatinine 0.6 GENERAL: Well-appearing, well-nourished and in no acute distress. NECK: Supple without JVD or thyromegaly. LUNGS: Breath sounds clear to auscultation bilaterally. Respiration equal and unlabored. No wheezes, rales or rhonchi. HEART: Regular rate and rhythm without murmurs, rubs or gallops. S1 and S2 heard. EXTREMITIES: Normal range of motion, no edema. No clubbing or cyanosis. Peripheral pulses intact. SKIN: Right wrist cath site, clean dry intact no hematoma 2+ pulses ASSESSMENT STEMI Status post PCI to mid RCA and PLV branch of the RCA on 11/15/21 Status post PCI to the distal circumflex and distal LAD History of type 2 diabetes Hypertension History of Hodgkin's lymphoma PLAN From a cardiology perspective, patient is stable to be discharged home. Continue dual antiplatelet therapy with aspirin and Effient. Effient is covered with $10 copay Continue statin, carvedilol, lisinopril Patient to follow-up with Dr. Jones in the office in one week Nurse Practitioner note has been reviewed, I agree with a documented findings and plan of care. Patient was seen and examined. Objective - Vital Signs Vital signs: Vital Signs Temp 99.1 F 11/18/21 08:00 Pulse 84 11/18/21 11:40 Resp 16 11/18/21 11:40 BP 132/92 11/18/21 11:40 Pulse Ox 95 11/18/21 11:40 Intake & Output 11/17/21 11/18/21 11/18/21 18:59 06:59 18:59 Intake Total 540 160 240 Output Total 500 Balance 540 -340 240 Weight 113 kg Intake: IV 300 Intake, IV Titration 160 Amount Sodium Chloride 0.9% 1, 160 000 ml In Empty Bag 1 bag @ 75 mls/hr IV .[id number] [facility] Rx#:[id number] Oral 240 240 Output: Urine 500 Other: Voiding Method Toilet Toilet Toilet # Voids 1 - Labs CBC & Chem 7: 11/17/21 07:18 11/18/21 07:16 Labs: Abnormal Lab Results - Last 24 Hours (Table) 11/17/21 11/17/21 11/18/21 Range/Units 16:42 19:54 06:03 POC Glucose (mg/dL) 176 H 182 H 219 H (75-99) mg/dL 11/18/21 Range/Units 11:29 POC Glucose (mg/dL) 224 H (75-99) mg/dL
--- NOTE | 2021-11-18 13:25 | P.DS ---
Providers Date of admission: 11/15/21 20:06 Attending physician: Hari Yoon MD Consults: 11/15/21 19:08 Consult Physician Stat Consulting Provider: Cardiology Hugo Consult Reason/Comments: STEMI ACTIVATION COMPLETE Do you want consulting provider notified?: Yes 11/15/21 20:22 Consult Physician Routine Consulting Provider: Cardiology Hugo Consult Reason/Comments: Post Interventional patient Do you want consulting provider notified?: Already Contacted 11/16/21 12:03 Consult Physician Routine Consulting Provider: Hari Yoon Consult Reason/Comments: medical management Do you want consulting provider notified?: Yes 11/17/21 08:32 Consult Physician Routine Consulting Provider: Cardiology Hugo Consult Reason/Comments: Post Interventional patient Do you want consulting provider notified?: Already Contacted Primary care physician: Stated None Hospital Course: This is a very pleasant 56-year-old male came in with complaints of nausea vomiting burning sensation which is much worse on last Tuesday and patient came to ER patient has 6 heartburn sensation going on for last few days. Patient is found to have inferior microinfarction patient underwent cardiac catheterization and found to have disease in LAD, RCA and left circumflex. Patient had a PCI to mid RCA and the PLV branch of RCA. Patient underwent staged intervention today as well. Patient had PCI to LAD and left circumflex. Patient denied any fever chills patient does have known history of diabetes mellitus patient is trying to control this with the diet to until recently and lately his diet has not been so great. Patient had a post-GA echo which did not show any heart failure but did show inferior wall akinesis/hypokinesis. Patient denied any symptoms at this time. 11/18/2021 Patient is medically stable clinically doing well normal ejection fraction patient will be discharged today. Patient will be discharged on metformin may need to increase the dose of metformin as an outpatient. Patient is to check his blood sugars twice a day PHYSICAL EXAMINATION: GENERAL: The patient is alert and oriented x3, not in any acute distress. Well developed, well nourished. HEENT: Pupils are round and equally reacting to light. EOMI. No scleral icterus. No conjunctival pallor. Normocephalic, atraumatic. No pharyngeal erythema. No thyromegaly. CARDIOVASCULAR: S1 and S2 present. No murmurs, rubs, or gallops. PULMONARY: Chest is clear to auscultation, no wheezing or crackles. ABDOMEN: Soft, nontender, nondistended, normoactive bowel sounds. No palpable organomegaly. MUSCULOSKELETAL: No joint swelling or deformity. EXTREMITIES: No cyanosis, clubbing, or pedal edema. NEUROLOGICAL: Gross neurological examination did not reveal any focal deficits. SKIN: No rashes. Assessment and plan -Acute ST elevation myocardial infarction: Patient had inferior wall myocardial infarction, does have coronary artery disease in other vessels as well. Patient is status post cardiac catheterization and staged intervention with the intervention to above-mentioned blood vessels. Patient is on dual antibiotic therapy MICHELLE inhibitor, beta vanessa, statin. Will be discharged today -Type 2 diabetes mellitus: Continue with sliding scale for now patient will be discharged on metformin at a low dose, does may need to be increased as an outpatient. Diabetic education, CBGs twice a day. - hypertension -Hyperlipidemia. Patient Condition at Discharge: Serious Plan - Discharge Summary New Discharge Prescriptions: New Aspirin 81 mg PO DAILY 30 Days #30 tab carvediloL [Coreg] 3.125 mg PO BID-W/MEALS 30 Days #60 tab Nitroglycerin Sl Tabs [Nitrostat] 0.4 mg SUBLINGUAL Q5M PRN #25 tab PRN Reason: Chest Pain lisinopriL [Zestril] 10 mg PO DAILY 30 Days #30 tab Prasugrel [Effient] 10 mg PO DAILY 30 Days #30 tab Atorvastatin [Lipitor] 80 mg PO HS 30 Days #30 tab metFORMIN HCL [Glucophage] 500 mg PO BID #60 tab Discharge Medication List Prasugrel [Effient] 10 mg PO DAILY 30 Days #30 tab 11/17/21 [Rx] Aspirin 81 mg PO DAILY 30 Days #30 tab 11/18/21 [Rx] Atorvastatin [Lipitor] 80 mg PO HS 30 Days #30 tab 11/18/21 [Rx] Nitroglycerin Sl Tabs [Nitrostat] 0.4 mg SUBLINGUAL Q5M PRN #25 tab 11/18/21 [Rx] carvediloL [Coreg] 3.125 mg PO BID-W/MEALS 30 Days #60 tab 11/18/21 [Rx] lisinopriL [Zestril] 10 mg PO DAILY 30 Days #30 tab 11/18/21 [Rx] metFORMIN HCL [Glucophage] 500 mg PO BID #60 tab 11/18/21 [Rx] Follow up Appointment(s)/Referral(s): Gamal Jones MD [STAFF PHYSICIAN] - 1 Week Julissa Reed MD [STAFF PHYSICIAN] - 1 Week Discharge Disposition: HOME SELF-CARE
== END 2021-11-18 15:24 | disposition home or self-care (01) | DRG 246 ==
LOC: EC 19:06 → 2SICU 20:06 → 3SCARD 11-16 13:29
PROVIDERS: ADMIT Internal Medicine; ATTEND Internal Medicine
PROC: B2111ZZ Fluoroscopy of Multiple Coronary Arteries using Low Osmolar Contrast (ICD-10-PCS; principal; 2021-11-15 19:19)
PROC: 02C03ZZ Extirpation of Matter from Coronary Artery, One Artery, Percutaneous Approach (ICD-10-PCS; principal; 2021-11-15 19:19)
PROC: 027135Z Dilation of Coronary Artery, Two Arteries with Two Drug-eluting Intraluminal Devices, Percutaneous Approach (ICD-10-PCS; principal; 2021-11-15 19:19)
PROC: 4A023N7 Measurement of Cardiac Sampling and Pressure, Left Heart, Percutaneous Approach (ICD-10-PCS; principal; 2021-11-15 19:19)
PROC: 027135Z Dilation of Coronary Artery, Two Arteries with Two Drug-eluting Intraluminal Devices, Percutaneous Approach (ICD-10-PCS; 2021-11-17 07:30)
DX: I21.19 ST elevation (STEMI) myocardial infarction involving other coronary artery of inferior wall (principal); J98.11 Atelectasis; E11.9 Type 2 diabetes mellitus without complications; I11.9 Hypertensive heart disease without heart failure; I25.110 Atherosclerotic heart disease of native coronary artery with unstable angina pectoris; Z20.822 Contact with and (suspected) exposure to COVID-19; E78.5 Hyperlipidemia, unspecified; E66.3 Overweight; Z68.33 Body mass index [BMI] 33.0-33.9, adult; Z86.16 Personal history of COVID-19; Z85.71 Personal history of Hodgkin lymphoma; Z71.3 Dietary counseling and surveillance
CPT/HCPCS: 36415; 71045; 80048; 80053; 82565; 83036; 84484; 85025; 85610; 85730; 87635; 93005; 93306; 93458; 96374; 96375; 99285

== ENCOUNTER → 2023-06-29 | Outpatient (CLI) | payer OTHER ==
--- NOTE | 2023-06-29 15:05 | P.SLEEP ---
History of Present Illness DATE: 06/29/2023 CONSULTATION/NEW PATIENT EVALUATION HISTORY OF PRESENT ILLNESS/SLEEP-WAKE EVALUATION: 58 year old gentleman had been evaluated in the sleep center for possible obstructive sleep apnea hypopnea syndrome. SLEEP SCHEDULE: Usually sleep schedule from 9 PM to 5 AM on weekdays and from 9 PM to 7 AM on weekend. FALLING ASLEEP: No problems with falling asleep. DURING SLEEP: Positive history of episodes of snoring. Patient wakes up from sleep once with nocturia. No history of hypnogogical hallucinations, sleep paralysis, or cataplexy. DURING THE DAY/WAKE STATE: Patient denied any significant excessive daytime sleepiness. [place] sleepiness scale is 1. Patient doesn't take naps. PAST MEDICAL HISTORY: Hypertension, coronary artery disease, diabetes mellitus, Hodgkin lymphoma, hyperlipidemia. PAST SURGICAL HISTORY: . 10 sessions to coronary arteries in 2021, chest surgery for Hodgkin lymphoma 1992. MEDICATIONS: Atorvastatin, metformin, carvedilol, lisinopril, Synjardy. SOCIAL HISTORY: Positive history of smoking about half pack a day for several years quit 30 years ago, alcohol consumption occasional. FAMILY HISTORY: Hypertension, diabetes. REVIEW OF SYSTEMS: Snoring, occasional awakenings from sleep. No fevers. No double vision. No recent chest pain. No shortness of breath. No abdominal pain. No bleeding episodes. No blood in urine. No seizure episodes. PHYSICAL EXAMINATION: GENERAL: A pleasant patient without any distress. VITAL SIGNS: BP 142/92 , HR 76 , RR 12 , weight 249.8 pounds, height 5 foot 10.5 inches, body mass index 37.4 . HEENT: PERRLA, EOMI. Evaluation of oropharynx showed tongue protrudes midline, low position of soft palate Mallampati 4. NECK: Supple. No JVD. Thyroid is not palpable. 17.5 inches in circumference. LUNGS: Clear to percussion and to auscultation. Good air exchange. No wheezing or rhonchi. HEART: S1, S2 regular. No murmurs, gallops or rubs. ABDOMEN: Soft and nontender. Bowel sounds are present. No organomegaly appreciated. EXTREMITIES: No clubbing or cyanosis. RESIDENT HALL DIRECTOR: Awake, alert, and oriented x3. Cranial nerves 2 to 7 intact. There is no fasciculation or atrophy noted. No focal deficits observed. ASSESSMENT: 1. Occasional snoring, extremely low position of soft palate Mallampati 4, wide neck 17.5 inches in circumference. Obstructive sleep apnea hypopnea syndrome. 2. Obesity BMI 37.4. 3. Hypertension. 4. Coronary artery disease, status post 4 stent insertions. 5 diabetes mellitus. 6 . Hyperlipidemia. 7. History of Hodgkin lymphoma treated by chemotherapy. 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 Polysomnography for evaluation of patient's breathing during sleep. 2. CPAP/BiPAP titration if sleep study confirms obstructive sleep apnea- hypopnea syndrome. 3. Preferable position during sleep on the side. 4. No driving if patient feels any sleepiness. Patient is aware of civil and criminal liability for unsafe driving. 5. Sleep hygiene with regular sleep time for at least 7.5-8 hours. 6. Watching and losing weight. Thank you very much for referring this patient for consultation. Sincerely, Louis Whitaker MD, PhD, FAASM. Diplomat of [place] [employer], Sleep Medicine Board by [place] [employer] [place] [employer] [facility] [facility] [place] Past Medical History Past Medical History: Cancer, Diabetes Mellitus, Myocardial Infarction ([place]) Additional Past Medical History / Comment(s): hodgkins lymphoma Last Myocardial Infarction Date:: october 2021 History of Any Multi-Drug Resistant Organisms: None Reported Past Surgical History: Heart Catheterization With Stent Additional Past Surgical History / Comment(s): biopsies, med port Date of Last Stent Placement:: october 2021 Past Psychological History: No Psychological Hx Reported Smoking Status: Never smoker Past Alcohol Use History: Rare Past Drug Use History: None Reported Medications and Allergies Home Medications Medication Instructions Recorded Confirmed Type Aspirin 81 mg PO DAILY 30 Days #30 tab 11/18/21 03/06/22 Rx Atorvastatin [Lipitor] 80 mg PO HS 30 Days #30 tab 11/18/21 03/06/22 Rx Nitroglycerin Sl Tabs [Nitrostat] 0.4 mg SUBLINGUAL Q5M PRN #25 tab 11/18/21 03/06/22 Rx carvediloL [Coreg] 3.125 mg PO BID-W/MEALS 30 Days 11/18/21 03/06/22 Rx #60 tab lisinopriL [Zestril] 10 mg PO DAILY 30 Days #30 tab 11/18/21 03/06/22 Rx Empagliflozin/Metformin HCl 1 tab PO W/[id number] 03/06/22 03/06/22 History [Synjardy Xr 25-1,000 mg Tablet] metFORMIN HCL [Glucophage] 1,000 mg PO HS 03/06/22 03/06/22 History Prasugrel [Effient] 10 mg PO HS #0 03/08/22 03/06/22 Rx Allergies Allergy/AdvReac Type Severity Reaction Status Date / Time No Known Allergies Allergy Verified 03/06/22 10:36 Sleep Note - Sleep Note Sleep Note: Temperature: Pulse Rate: Respiratory Rate: Blood Pressure: SpO2: Height: Weight: BMI: Neck Circumference:
== END ==
LOC: 3 N SLEEP 13:39
PROVIDERS: ATTEND Internal Medicine
DX: G47.33 Obstructive sleep apnea (adult) (pediatric) (principal); E66.9 Obesity, unspecified; I10 Essential (primary) hypertension; I25.10 Atherosclerotic heart disease of native coronary artery without angina pectoris; E11.9 Type 2 diabetes mellitus without complications; E78.5 Hyperlipidemia, unspecified; I25.2 Old myocardial infarction; Z85.71 Personal history of Hodgkin lymphoma; Z95.5 Presence of coronary angioplasty implant and graft; Z68.37 Body mass index [BMI] 37.0-37.9, adult; Z79.84 Long term (current) use of oral hypoglycemic drugs; Z79.899 Other long term (current) drug therapy; Z87.891 Personal history of nicotine dependence
CPT/HCPCS: 99211

== ENCOUNTER 2023-07-06 15:47 | Outpatient (CLI) | payer OTHER ==
--- NOTE | 2023-07-07 18:07 | P.PCN ---
Description of Procedure: POLYSOMNOGRAPHY REPORT PROCEDURE(S)/DATE(S): Polysomnography 07/06/2023 CLINICAL: Patient has been seen in the sleep center for evaluation of obstructive sleep apnea-hypopnea syndrome. Please see my consultation. Sleep study has been done for evaluation of patient breathing during the sleep. PROCEDURE: The standard montage for clinical polysomnography included the electroencephalogram, the electrooculogram, the mentalis surface electromyography and Lead II cardiography. The respiratory battery consisted of measurements of nasal/buccal air flow, pressure transducer measurements from nose, thoracic and/or abdominal effort and intercostal surface electromyography. Video monitoring has been done to check for any parasomnia events. Nocturnal oxyhemoglobin saturations were obtained by finger oximetry. Step-mcbride titration with positive airway pressure was utilized to control the respiratory events, if necessary. RESULTS: During the diagnostic sleep study sleep efficiency was slightly decreased to 84.6 %. Latency to sleep onset was normal 13.0 min. Sleep architecture showed stage NI was normal 5.0 %, Delta sleep was normal 17.8 %, REM sleep was close to borderline 19.0 %. Respiratory channel showed 0 obstructive apneas, 1 mixed apneas, 0 central apneas, 72 hypopneas with lowest oxygen level 84 %. Total apnea hypopnea index was 12.8. Heart rate was in the range between 65 and 77, average 70 by computer calculation. EMG showed 90.1 periodic limb movements per hour with 0.5 micro-arousals per hour. IMPRESSIONS: 1. Obstructive sleep apnea hypopnea syndrome with loud snoring have been documented during the sleep study. 2. Severe periodic limb movements have been documented, but with only few micro-arousals. 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 The patient will have AutoPAP treatment for correction of respiratory abnormalities during the sleep. 2. Losing weight program. 3. Sleep hygiene with regular time in bed for at least 7-1/2 hours. 4. No driving if feeling sleepiness, patient is aware about civil and and criminal liability for unsafe driving. 5. Please check iron profile including ferritin level. Low level of iron may increase the risk for periodic limb movements. Thank you very much for allowing me to participate in the management of your patient. Sincerely, Louis Whitaker MD, PhD, FAASM. Diplomat of [place] [employer], Sleep Medicine Board by [place] [employer] [facility] [place]
== END 2023-07-07 05:20 | disposition home or self-care (01) ==
LOC: 3 N SLEEP 15:47
PROVIDERS: ATTEND Internal Medicine
DX: G47.33 Obstructive sleep apnea (adult) (pediatric) (principal); G47.61 Periodic limb movement disorder; Z87.891 Personal history of nicotine dependence
CPT/HCPCS: 95810

== ENCOUNTER 2025-03-14 17:54 | Emergency (ER) | payer BC, OTHER ==
[2025-03-14 18:03] LABS: Glucose,Whole Blood 225 mg/dL (70-110)
--- NOTE | 2025-03-14 19:43 | ED ---
Skin/Abscess/FB HPI - General Chief complaint: Skin/Abscess/Foreign Body Stated complaint: cyst on buttock Time Seen by Provider: 03/14/25 19:35 Source: patient, RN notes reviewed Mode of arrival: ambulatory Limitations: no limitations - History of Present Illness Initial comments: This is a 60-year-old male who presents to the emergency department for a cyst on his buttocks. States that he first noticed this 2 to 3 days ago. This is increasingly painful. Denies any drainage from the area. Also denies any fevers/chills. He has a history of a pilonidal cyst that required drainage many years ago. However, states that this is lower down in the gluteal cleft than the pilonidal cyst was. He had initially gone to urgent care but was advised to come here for further evaluation. MD complaint: abscess/boil - Related Data Home Medications Medication Instructions Recorded Confirmed Empagliflozin/Metformin HCl 1 tab PO W/BRKFST 03/06/22 03/06/22 [Synjardy Xr 25-1,000 mg Tablet] metFORMIN HCL [Glucophage] 1,000 mg PO HS 03/06/22 03/06/22 Previous Rx's Medication Instructions Recorded Aspirin 81 mg PO DAILY 30 Days #30 tab 11/18/21 Atorvastatin [Lipitor] 80 mg PO HS 30 Days #30 tab 11/18/21 Nitroglycerin Sl Tabs [Nitrostat] 0.4 mg SUBLINGUAL Q5M PRN #25 tab 11/18/21 carvediloL [Coreg] 3.125 mg PO BID-W/MEALS 30 Days 11/18/21 #60 tab lisinopriL [Zestril] 10 mg PO DAILY 30 Days #30 tab 11/18/21 Prasugrel [Effient] 10 mg PO HS #0 03/08/22 Cephalexin [Keflex] 500 mg PO Q6HR 10 Days #40 cap 03/15/25 Sulfamethox-Tmp 800-160Mg [Bactrim 1 tab PO Q12HR 10 Days #20 tab 03/15/25 DS 800-160 mg] Allergies Allergy/AdvReac Type Severity Reaction Status Date / Time No Known Allergies Allergy Verified 03/06/22 10:36 Review of Systems ROS Statement: Those systems with pertinent positive or pertinent negative responses have been documented in the HPI. ROS Other: All systems not noted in ROS Statement are negative. Past Medical History Past Medical History: Cancer, Diabetes Mellitus, Hyperlipidemia, Hypertension, Myocardial Infarction ([place]) Additional Past Medical History / Comment(s): hodgkins lymphoma Last Myocardial Infarction Date:: october 2021 History of Any Multi-Drug Resistant Organisms: None Reported Past Surgical History: Heart Catheterization With Stent Additional Past Surgical History / Comment(s): biopsies, med port Date of Last Stent Placement:: october 2021 Past Psychological History: No Psychological Hx Reported Smoking Status: Never smoker Past Alcohol Use History: Rare Past Drug Use History: None Reported General Exam Limitations: no limitations General appearance: alert, in no apparent distress Head exam: Present: atraumatic, normocephalic, normal inspection Respiratory exam: Present: normal lung sounds bilaterally. Absent: respiratory distress, wheezes, rales, rhonchi, stridor Cardiovascular Exam: Present: regular rate, normal rhythm GI/Abdominal exam: Present: soft, normal bowel sounds. Absent: distended, tenderness, guarding, rebound, rigid Rectal exam: Present: other (Gluteal cleft abscess with active purulent drainage) Neurological exam: Present: alert, oriented X3, CN II-XII intact Psychiatric exam: Present: normal affect, normal mood Course Vital Signs 03/14/25 03/14/25 03/14/25 18:00 20:42 23:15 Temperature 97.8 F 98 F Pulse Rate 116 H 100 91 Respiratory 20 16 16 Rate Blood Pressure 149/107 173/104 147/88 O2 Sat by Pulse 98 97 98 Oximetry 03/15/25 01:06 Temperature 98.1 F Pulse Rate 98 Respiratory 16 Rate Blood Pressure 148/68 O2 Sat by Pulse 97 Oximetry Medical Decision Making - Medical Decision Making This is a 60-year-old male who presents to the emergency department for a rectal abscess. Was pt. sent in by a medical professional or institution? @ -No Did you speak to anyone other than the patient for history? @ -No Did you review nursing and triage notes? @ -Yes, and I agree, it is accurate with regards to the patient's symptoms. Were old charts reviewed? @ -No Differential Diagnosis? @ -Perirectal abscess, gluteal cleft abscess, pilonidal cyst, phlegmon, this is not meant to be an all-inclusive list. EKG interpreted by me (3pts min.)? @ -Not obtained X-rays interpreted by me (1pt min.)? @ -Not obtained CT interpreted by me (1pt min.)? @ -CT scan of the abdomen and pelvis obtained. My interpretation identifies a gluteal cleft abscess. U/S interpreted by me (1pt. min.)? @ -Not obtained What testing was considered but not performed? (CT, X-rays, U/S, labs)? Why? @ -None What meds were considered but not given? Why? @ -None Did you discuss the management of the patient with other professionals? @ -No Did you reconcile home meds? @ -No Was smoking cessation discussed for >3mins.? @ -No Was critical care preformed (if so, how long)? @ -No Were there social determinants of health that impacted care today? How? (Homelessness, low income, unemployed, alcoholism, drug addiction, transportation, low edu. Level, literacy, decrease access to med. care, long-term, rehab)? @ -No Was there de-escalation of care discussed even if they declined? (Discuss DNR or withdrawal of care, Hospice)? @ -No What co-morbidities impacted this encounter? (DM, HTN, Smoking, COPD, CAD, Cancer, CVA, Hep., AIDS, mental health diagnosis, sleep apnea, morbid obesity)? @ -DM Was patient admitted / discharged? @ -Discharged. Lab work demonstrates mild leukocytosis with a white blood cell count of 10.4. CRP mildly elevated at 3.2. CT scan of the abdomen and pelvis demonstrates a subcutaneous abscess to the right gluteal cleft. This is adjacent to the anus but does not definitively represent a perianal abscess. There is no supralevator extension or perirectal component. On exam there was already active drainage. I was able to apply a light pressure and get out a substantial amount of additional purulent discharge with improvement in symptoms. Aerobic and anaerobic wound cultures obtained. Prescription for Bactrim and Keflex provided to be taken over the next 10 days. He was also given information for follow-up with general surgery. Patient discharged home in stable condition. Case discussed with ED attending Dr. De La Cruz. Return precautions reviewed in depth, the patient is instructed to return to the emergency department with any new, worsening, or concerning symptoms. Patient verbalized understanding. Undiagnosed new problem with uncertain prognosis? @ -None Drug Therapy requiring intensive monitoring for toxicity (Heparin, Nitro, Insulin, Cardizem)? @ -None Were any procedures done? @ -None Diagnosis/symptom? @ -Gluteal cleft abscess Acute, or Chronic, or Acute on Chronic? @ -Acute Uncomplicated (without systemic symptoms) or Complicated (systemic symptoms)? @ -Uncomplicated Side effects of treatment? @ -None Exacerbation, Progression, or Severe Exacerbation] @ -Not applicable Poses a threat to life or bodily function? @ -No - Lab Data Result diagrams: 03/14/25 20:34 03/14/25 20:34 Lab Results 03/14/25 03/14/25 03/14/25 Range/Units 18:02 20:34 20:34 WBC 10.42 H (4.50-10.00) 10*3/uL RBC 5.57 (4.40-5.60) 10*6/uL Hgb 16.5 (13.0-17.0) g/dL Hct 47.6 (39.6-50.0) % MCV 85.5 (80.0-97.0) fL MCH 29.6 (27.0-32.0) pg MCHC 34.7 (32.0-37.0) g/dL Plt Count 216 (140-440) 10*3/uL MPV 10.2 (9.5-12.2) fL Immature Gran % (Auto) 0.4 % Neutrophils % 72.2 % Lymphocytes % 18.6 % Monocytes % 7.8 % Eosinophils % 0.5 % Basophils % 0.5 % Immature Gran # 0.04 (0.00-0.04) 10*3/uL Neutrophils # 7.53 (1.80-7.70) 10*3/uL Lymphocytes # 1.94 (0.90-5.00) 10*3/uL Monocytes # 0.81 (0.20-1.00) 10*3/uL Eosinophils # 0.05 (0.04-0.35) 10*3/uL Basophils # 0.05 (0.00-0.10) 10*3/uL Sodium 140 (137-145) mmol/L Potassium 3.7 (3.5-5.1) mmol/L Chloride 102 (98-107) mmol/L Carbon Dioxide 21 L (22-30) mmol/L Anion Gap 17 mmol/L BUN 11 (9-20) mg/dL Creatinine 0.67 (0.66-1.25) mg/dL Est GFR (CKD-EPI)AfAm >90 (>60 ml/min/1.73 sqM) Est GFR (CKD-EPI)NonAf >90 (>60 ml/min/1.73 sqM) Glucose 215 H (74-99) mg/dL POC Glucose (mg/dL) 225 H (70-110) mg/dL POC Glu [employer] Sales Representative ID Martinez Austyn Plasma Lactic Acid Ashok (0.7-2.0) mmol/L Calcium 9.1 (8.4-10.2) mg/dL Total Bilirubin 1.3 (0.2-1.3) mg/dL AST 24 (17-59) U/L ALT 18 (4-49) U/L Alkaline Phosphatase 107 (38-126) U/L C-Reactive Protein 3.2 H (<1.0) mg/dL Total Protein 7.5 (6.3-8.2) g/dL Albumin 4.4 (3.5-5.0) g/dL 03/14/25 Range/Units 20:34 WBC (4.50-10.00) 10*3/uL RBC (4.40-5.60) 10*6/uL Hgb (13.0-17.0) g/dL Hct (39.6-50.0) % MCV (80.0-97.0) fL MCH (27.0-32.0) pg MCHC (32.0-37.0) g/dL Plt Count (140-440) 10*3/uL MPV (9.5-12.2) fL Immature Gran % (Auto) % Neutrophils % % Lymphocytes % % Monocytes % % Eosinophils % % Basophils % % Immature Gran # (0.00-0.04) 10*3/uL Neutrophils # (1.80-7.70) 10*3/uL Lymphocytes # (0.90-5.00) 10*3/uL Monocytes # (0.20-1.00) 10*3/uL Eosinophils # (0.04-0.35) 10*3/uL Basophils # (0.00-0.10) 10*3/uL Sodium (137-145) mmol/L Potassium (3.5-5.1) mmol/L Chloride (98-107) mmol/L Carbon Dioxide (22-30) mmol/L Anion Gap mmol/L BUN (9-20) mg/dL Creatinine (0.66-1.25) mg/dL Est GFR (CKD-EPI)AfAm (>60 ml/min/1.73 sqM) Est GFR (CKD-EPI)NonAf (>60 ml/min/1.73 sqM) Glucose (74-99) mg/dL POC Glucose (mg/dL) (70-110) mg/dL POC Glu [employer] Sales Representative ID Plasma Lactic Acid Ashok 1.1 (0.7-2.0) mmol/L Calcium (8.4-10.2) mg/dL Total Bilirubin (0.2-1.3) mg/dL AST (17-59) U/L ALT (4-49) U/L Alkaline Phosphatase (38-126) U/L C-Reactive Protein (<1.0) mg/dL Total Protein (6.3-8.2) g/dL Albumin (3.5-5.0) g/dL - Radiology Data Radiology results: report reviewed, image reviewed Disposition Clinical Impression: Abscess, gluteal cleft Disposition: HOME SELF-CARE Instructions (If sedation given, give patient instructions): Abscess Incision and Drainage (ED), Abscess (ED) Additional Instructions: Return to the emergency department with any new, worsening, or concerning symptoms. Take both antibiotics as prescribed for 10 days. Alternate with ibuprofen and Tylenol as needed for pain relief. Follow-up with either of the general surgery offices listed below. Let them know that you were seen in the emergency department for an abscess and they will schedule you for a follow-up appointment. Prescriptions: Sulfamethox-Tmp 800-160Mg [Bactrim DS 800-160 mg] 1 tab PO Q12HR 10 Days #20 tab Cephalexin [Keflex] 500 mg PO Q6HR 10 Days #40 cap Is patient prescribed a controlled substance at d/c from ED?: No Referrals: Julissa Reed MD [Primary Care Provider] - 1-2 days Shant Marie DO [Doctor of Osteopathic Medicine] - 1-2 days Ad Bran MD [STAFF PHYSICIAN] - 1-2 days
[2025-03-14 20:43] LABS: Basophils # (A) 0.05 10*3/uL (0.00-0.10); Basophils % (A) 0.5 %; Eosinophils # (A) 0.05 10*3/uL (0.04-0.35); Eosinophils % (A) 0.5 %; HCT 47.6 % (39.6-50.0); HGB 16.5 g/dL (13.0-17.0); Lymphocytes # (A) 1.94 10*3/uL (0.90-5.00); Lymphocytes % (A) 18.6 %; MCH 29.6 pg (27.0-32.0); MCHC 34.7 g/dL (32.0-37.0); MCV 85.5 fL (80.0-97.0); Mean Platelet Volume 10.2 fL (9.5-12.2); Monocytes # (A) 0.81 10*3/uL (0.20-1.00); Monocytes % (A) 7.8 %; Neutrophils # (A) 7.53 10*3/uL (1.80-7.70); Neutrophils % (A) 72.2 %; Platelet Count 216 10*3/uL (140-440); RBC 5.57 10*6/uL (4.40-5.60); RDW 12.3 % (11.5-14.5); WBC 10.42 10*3/uL (4.50-10.00)
[2025-03-14 20:44] VITALS: RESP 16
[2025-03-14 21:07] LABS: ALT 18 U/L (4-49); AST 24 U/L (17-59); African American GFR (CKD) >90 (>60 ml/min/1.73 sqM); Albumin 4.4 g/dL (3.5-5.0); Alkaline Phosphatase 107 U/L (38-126); Anion Gap 17 mmol/L; Blood Urea Nitrogen 11 mg/dL (9-20); C Reactive Protein 3.2 mg/dL (<1.0); Calcium 9.1 mg/dL (8.4-10.2); Carbon Dioxide 21 mmol/L (22-30); Chloride 102 mmol/L (98-107); Glucose 215 mg/dL (74-99); Non-African American GFR(CKD) >90 (>60 ml/min/1.73 sqM); Potassium 3.7 mmol/L (3.5-5.1); Sodium 140 mmol/L (137-145); Total Bilirubin 1.3 mg/dL (0.2-1.3); Total Protein 7.5 g/dL (6.3-8.2)
[2025-03-14] MEDS: MORPHINE SULFATE 4 MG/ML SYRINGE IVP STA (22:35)
[2025-03-14] MEDS: KETOROLAC 15 MG/ML 1 ML VIAL IVP STA (22:35)
[2025-03-14] MEDS: SODIUM CHLORIDE 0.9% 1,000 ML IV ONE (22:36)
--- NOTE | 2025-03-15 00:36 | CT ---
EXAM: CT Abdomen and Pelvis With Intravenous Contrast CLINICAL HISTORY: ITS.REASON CT Reason: Perirectal abscess TECHNIQUE: Axial computed tomography images of the abdomen and pelvis with intravenous contrast. CTDI is 15.77 mGy and DLP is 956.9 mGy-cm. This CT exam was performed using one or more of the following dose reduction techniques: automated exposure control, adjustment of the mA and/or kV according to patient size, and/or use of iterative reconstruction technique. COMPARISON: No relevant prior studies available. FINDINGS: Lung bases: Unremarkable. No mass. No consolidation. ABDOMEN: Liver: Unremarkable. No mass. Gallbladder and bile ducts: Unremarkable. No calcified stones. No ductal dilation. Pancreas: Unremarkable. No mass. No ductal dilation. Spleen: Unremarkable. No splenomegaly. Adrenals: Unremarkable. No mass. Kidneys and ureters: Unremarkable. No solid mass. No hydronephrosis. Stomach and bowel: Diverticulosis, without acute diverticulitis. No bowel obstruction. No free air. PELVIS: Appendix: No findings to suggest acute appendicitis. Bladder: Unremarkable. No mass. Reproductive: Unremarkable as visualized. ABDOMEN and PELVIS: Intraperitoneal space: See above. Bones/joints: Degenerative changes of the spine. No acute fracture. No dislocation. Soft tissues: Subcutaneous abscess in the RIGHT gluteal cleft, measuring 3.0 x 1.2 cm, located deep to the skin surface. This is adjacent to the anus however, does not definitively represent a perianal abscess. No supralevator extension. No perirectal component. Vasculature: Atherosclerotic changes of the aorta. No abdominal aortic aneurysm. Lymph nodes: Unremarkable. No enlarged lymph nodes. IMPRESSION: Subcutaneous abscess in the RIGHT gluteal cleft, measuring 3.0 x 1.2 cm, located deep to the skin surface. This is adjacent to the anus however, does not definitively represent a perianal abscess. No supralevator extension. No perirectal component.
[2025-03-15] MEDS: CEPHALEXIN 500MG STARTER PACK 4 CAP BTL PO STA (00:53)
[2025-03-15] MEDS: LIDOCAINE 1% INJ 10MG/ML (20 ML MDV) SQ ONE (00:53)
[2025-03-15] MEDS: SULFAMETH-TMP DS STARTER PACK 2 TAB BTL PO STA (00:53)
[2025-03-15] MEDS: ACET/COD 300 MG/30 MG STARTER PACK 6 TAB BTL PO STA (00:53)
[2025-03-15] MEDS: CEPHALEXIN 500 MG CAP PO STA (00:54)
[2025-03-15] MEDS: SULFAMETHOX-TMP 800-160MG 1 EACH TAB PO STA (00:54)
[2025-03-15 01:07] VITALS: BP 148/68; PULSE 98; TEMP 98.1
[2025-03-15 04:08] LABS: Erythrocyte Sedimentation Rate 13 mm/Hr (0-20)
== END 2025-03-15 01:09 | disposition home or self-care (01) ==
LOC: EC 17:54
DX: L02.31 Cutaneous abscess of buttock (principal); E11.9 Type 2 diabetes mellitus without complications; Z79.84 Long term (current) use of oral hypoglycemic drugs
CPT/HCPCS: 36415; 80053; 85652; 83605; 85025; 86140; 74177; 99284; 96374; 96375; 96361; J2270; J1885; Q9967; 87070; 87075; 87205